=== PATIENT | male | born 1945 | race Caucasian/White ===

== ENCOUNTER → 2017-10-12 | Outpatient (CLI) | payer MEDICARE ==
[~2017-10-12] MED LIST: ALLO100T PO; ALPR0.5T8 PO; BACL20TA PO; ESCI20TA36 PO; GLIP-220 PO; LEVO5TAB13 PO; LISI2.5T2 PO; SIMV10TA6 PO; SITA50TA PO
== END | disposition home or self-care (01) ==
LOC: SHCH 09:52
PROVIDERS: ATTEND Internal Medicine Cardiovascular Disease
DX: I67.9 Cerebrovascular disease, unspecified (principal); I25.10 Atherosclerotic heart disease of native coronary artery without angina pectoris; I25.2 Old myocardial infarction; E11.9 Type 2 diabetes mellitus without complications; I10 Essential (primary) hypertension; E78.4 Other hyperlipidemia; E78.5 Hyperlipidemia, unspecified; Z95.5 Presence of coronary angioplasty implant and graft
CPT/HCPCS: 93880

== ENCOUNTER 2018-08-03 06:50 | Day surgery (SDC) | payer MEDICARE ==
[~2018-08-03] VITALS: Ht 170.2 cm; Wt 117.5 kg
[~2018-08-03 06:50] MED LIST changes: +ALBU8.5H8 IH; -ALLO100T PO; +ATOR-2 PO; -BACL20TA PO; +CETI10TA57 PO; +CLOP75TA32 PO; -ESCI20TA36 PO; +FLUTICASONE; -GLIP-220 PO; +GLIP10TA19 PO; +GLYC10.7 IH; +IPRATROPIUM; -LEVO5TAB13 PO; -LISI2.5T2 PO; +LOSA25TA41 PO; +METF-444 PO; +METO25TA6 PO; +OMEP40CA37 PO; -SIMV10TA6 PO; -SITA50TA PO; +SODIUM CHLORIDE 0.9% 1000ML 1,000 ML IV ONE
[2018-08-03 07:12] VITALS: BP 124/74
[2018-08-03] MEDS ORDERED: IPRATROPIUM/ALBUTEROL SULFATE 3 ML SOLUTION IH ONE (07:26)
[2018-08-03] MEDS ORDERED: PHENYLEPHRINE HCL 10 MG/ML 1ML VIAL IV ONE (09:19)
[2018-08-03] MEDS ORDERED: SODIUM CHLORIDE 0.9% 10 ML VIAL ONE (09:19)
[2018-08-03 09:32] VITALS: BP 124/74
[2018-08-03 09:38] VITALS: BP 120/65
[2018-08-03 09:56] VITALS: BP 120/65
== END 2018-08-03 10:08 | disposition home or self-care (01) ==
LOC: ENDO 06:50 → DAH 06:50 → ENDO 10:08
PROVIDERS: ATTEND Internal Medicine
DX: D12.2 Benign neoplasm of ascending colon (principal); D12.3 Benign neoplasm of transverse colon; D12.4 Benign neoplasm of descending colon; D12.5 Benign neoplasm of sigmoid colon; K63.5 Polyp of colon; K92.1 Melena; K64.4 Residual hemorrhoidal skin tags; K64.1 Second degree hemorrhoids; K31.89 Other diseases of stomach and duodenum; K22.8 Other specified diseases of esophagus; E11.9 Type 2 diabetes mellitus without complications; F41.9 Anxiety disorder, unspecified; F32.9 Major depressive disorder, single episode, unspecified; E66.9 Obesity, unspecified; I10 Essential (primary) hypertension; I21.3 ST elevation (STEMI) myocardial infarction of unspecified site; K29.50 Unspecified chronic gastritis without bleeding; Z68.41 Body mass index [BMI] 40.0-44.9, adult; Z79.899 Other long term (current) drug therapy; Z98.890 Other specified postprocedural states; E78.5 Hyperlipidemia, unspecified; J44.9 Chronic obstructive pulmonary disease, unspecified; I25.10 Atherosclerotic heart disease of native coronary artery without angina pectoris
CPT/HCPCS: 43239; 45380; 45385; 82948 ×2; 88342; 93005; 94640; A4606; J2370; J7030

== ENCOUNTER → 2019-03-14 | Outpatient (CLI) | payer MEDICARE ==
[~2019-03-14] MED LIST changes: +OMEP40CA13 PO; -OMEP40CA37 PO; -SODIUM CHLORIDE 0.9% 1000ML 1,000 ML IV ONE
== END | disposition home or self-care (01) ==
LOC: RAH 14:39
PROVIDERS: ATTEND Urology
DX: N28.1 Cyst of kidney, acquired (principal); D30.01 Benign neoplasm of right kidney
CPT/HCPCS: 76770

== ENCOUNTER → 2019-03-29 | Outpatient (CLI) | payer MEDICARE | END | disposition home or self-care (01) | LOC: RAH 12:52 | PROVIDERS: ATTEND Internal Medicine Gastroenterology | DX: R19.4 Change in bowel habit (principal) | CPT/HCPCS: 74018 ==

== ENCOUNTER 2019-12-15 06:29 | Day surgery (SDC) | payer MEDICARE ==
[2019-12-15] VITALS (7 sets, daily range): BP systolic 103–132; BP diastolic 58–69
[~2019-12-15] VITALS: Ht 170.2 cm; Wt 117.9 kg
[~2019-12-15 06:29] MED LIST changes: -ALBU8.5H8 IH; -ATOR-2 PO; +ESCI20TA36 PO; +ROSU20TA31 PO; +SODIUM CHLORIDE 0.9% 1000ML 1,000 ML IV ONE
[2019-12-15] MEDS ORDERED: PROPOFOL 10 MG/ML 20ML VIAL IV ONE ×2 (08:45→09:03)
[2019-12-15] MEDS ORDERED: LIDOCAINE HCL-MPF 2% 5ML VIAL ONE (08:47)
--- NOTE | 2019-12-15 09:48 | NUR ---
dc pt dc home via w[place],no distress noted. pt accompanied by spouse . pt denied any pain or discomforts.
== END 2019-12-15 09:48 | disposition home or self-care (01) ==
LOC: ENDO 06:29 → DAH 06:29 → ENDO 09:48
PROVIDERS: ATTEND Internal Medicine
DX: K59.00 Constipation, unspecified (principal); K63.5 Polyp of colon; K57.30 Diverticulosis of large intestine without perforation or abscess without bleeding; K64.1 Second degree hemorrhoids; Z86.010 Personal history of colon polyps; J44.9 Chronic obstructive pulmonary disease, unspecified; I10 Essential (primary) hypertension; I25.10 Atherosclerotic heart disease of native coronary artery without angina pectoris; K21.9 Gastro-esophageal reflux disease without esophagitis; E11.9 Type 2 diabetes mellitus without complications; F41.9 Anxiety disorder, unspecified; E78.5 Hyperlipidemia, unspecified; K29.50 Unspecified chronic gastritis without bleeding; Z95.5 Presence of coronary angioplasty implant and graft; Z20.828 Contact with and (suspected) exposure to other viral communicable diseases
CPT/HCPCS: 45380; 45385; 82948 ×2; 93005; A4215; A4221; A4222; A4223; A4606; A4620; A4663; C9803; J2704 ×2; J3490; J7030; U0003

== ENCOUNTER → 2019-12-28 | Outpatient (CLI) | payer MEDICARE ==
[~2019-12-28] MED LIST changes: -CLOP75TA32 PO; -SODIUM CHLORIDE 0.9% 1000ML 1,000 ML IV ONE
== END | disposition home or self-care (01) ==
LOC: SHCH 14:40
PROVIDERS: ATTEND Internal Medicine Cardiovascular Disease
DX: I65.23 Occlusion and stenosis of bilateral carotid arteries (principal); I25.10 Atherosclerotic heart disease of native coronary artery without angina pectoris
CPT/HCPCS: 93880

== ENCOUNTER → 2020-01-18 | Outpatient (CLI) | payer MEDICARE | END | disposition home or self-care (01) | LOC: RAH 09:05 | PROVIDERS: ATTEND Internal Medicine Gastroenterology | DX: K20.9 Esophagitis, unspecified (principal); K44.9 Diaphragmatic hernia without obstruction or gangrene; R13.10 Dysphagia, unspecified | CPT/HCPCS: 74240 ==

== ENCOUNTER → 2020-10-07 | Outpatient (CLI) | payer MEDICARE ==
[~2020-10-07] MED LIST changes: -ESCI20TA36 PO; +ESCI20TA38 PO; -OMEP40CA13 PO; +OMEP40CA21 PO
== END | disposition home or self-care (01) ==
LOC: RAH 14:55
PROVIDERS: ATTEND Urology
DX: N28.1 Cyst of kidney, acquired (principal)
CPT/HCPCS: 76770

== ENCOUNTER → 2021-07-29 | Outpatient (CLI) | payer MEDICARE | END | disposition home or self-care (01) | LOC: SHCH 12:44 | PROVIDERS: ATTEND Internal Medicine Cardiovascular Disease | DX: I50.20 Unspecified systolic (congestive) heart failure (principal) | CPT/HCPCS: 93306 ==

== ENCOUNTER → 2022-07-07 | Outpatient (CLI) | payer MEDICARE | END | disposition home or self-care (01) | LOC: SHCH 15:03 | PROVIDERS: ATTEND Internal Medicine Cardiovascular Disease | DX: G45.3 Amaurosis fugax (principal); I65.23 Occlusion and stenosis of bilateral carotid arteries | CPT/HCPCS: 93880 ==

== ENCOUNTER → 2022-07-10 | Outpatient (CLI) | payer MEDICARE ==
[~2022-07-10] MED LIST changes: +REGADENOSON 0.4 MG/5 ML PF SYG IVP SCH
== END | disposition home or self-care (01) ==
LOC: SHCH 09:32
PROVIDERS: ATTEND Internal Medicine Cardiovascular Disease
DX: I25.9 Chronic ischemic heart disease, unspecified (principal); I25.10 Atherosclerotic heart disease of native coronary artery without angina pectoris; R07.9 Chest pain, unspecified; I10 Essential (primary) hypertension; E11.9 Type 2 diabetes mellitus without complications; E78.5 Hyperlipidemia, unspecified; M10.9 Gout, unspecified; I25.2 Old myocardial infarction; Z95.5 Presence of coronary angioplasty implant and graft; Z79.84 Long term (current) use of oral hypoglycemic drugs; Z79.02 Long term (current) use of antithrombotics/antiplatelets; Z79.899 Other long term (current) drug therapy
CPT/HCPCS: 78452; 96374; 93017; J2785; A9500 ×2

== ENCOUNTER → 2023-03-23 | Outpatient (CLI) | payer MEDICARE ==
[~2023-03-23] MED LIST changes: +REGADENOSON 0.4 MG/5 ML PF SYG IVP ONE; -REGADENOSON 0.4 MG/5 ML PF SYG IVP SCH; -ROSU20TA31 PO; +ROSU20TA73 PO
== END | disposition home or self-care (01) ==
LOC: SHCH 08:43
PROVIDERS: ATTEND Internal Medicine Cardiovascular Disease
DX: I25.10 Atherosclerotic heart disease of native coronary artery without angina pectoris (principal)
CPT/HCPCS: 78452; 96374; 93017; J2785; A9500 ×2

== ENCOUNTER → 2023-09-10 | Outpatient (CLI) | payer MEDICARE ==
[~2023-09-10] MED LIST changes: -REGADENOSON 0.4 MG/5 ML PF SYG IVP ONE
== END | disposition home or self-care (01) ==
LOC: RAH 10:19
PROVIDERS: ATTEND Urology
DX: N21.1 Calculus in urethra (principal)
CPT/HCPCS: 76770